=== PATIENT | female | born 1995 | race Caucasian/White ===

== ENCOUNTER → 2017-09-11 16:11 | Observation (INO) ==
[2017-09-11 13:27] LABS: Bilirubin,Urine Negative (Negative); Blood,Urine Negative (Negative); Clarity,Urine Cloudy (Clear); Color,Urine Yellow (Yellow); Glucose,Urine (UA) Normal (Normal); Ketones,Urine 80 mg/dL (Negative); Leukocyte Esterase,Urine Moderate (Negative); Nitrite,Urine Negative (Negative); PH,Urine 6.5 pH Units (5.0-8.0); Protein,Urine 30 mg/dL (Neg-Trace); Specific Gravity,Urine 1.023 (1.010-1.025); Urobilinogen,Urine Normal (Normal)
[2017-09-11 13:30] LABS: Bacteria,Urine Few per hpf (None-Few); Hyaline Casts,Urine Few per lpf (None-Few); Squamous Epithelial Cell,Urine Many per lpf (None-Few); WBC,Urine 15-30 per hpf (0-3)
[2017-09-11 13:36] LABS: Amphetamine Screen,Urine Negative ng/mL (Cutoff=1000); Barbiturate Screen,Urine Negative ng/mL (Cutoff=200); Benzodiazepines Screen,Urine Negative ng/mL (Cutoff=200); Cannabinoid Screen,Urine Negative ng/mL (Cutoff = 50); Cocaine Screen,Urine Negative ng/mL (Cutoff= 300); Opiate Screen,Urine Negative ng/mL (Cutoff=300); Phencyclidine Screen,Urine Negative ng/mL (Cutoff=25)
--- NOTE | 2017-09-11 15:10 | OB/GYN Progress Note ---
Date of Encounter: 09/11/17 Time of Encounter: 15:04 - Assessment and Plan (1) Nausea and vomiting during Current Visit: Yes Status: Acute LR bolus, Zofran IV given. Discussed with patient the stomach flu usually takes about 24-36 hours to run its course. Recommended half diluted Gatorade until tolerating and then full-strength Gatorade with starting Chavez diet tomorrow. Discharged home with labor and went to return to triage precautions. Discussed with patient if unable to keep any food or liquids down after 24 hours to please return to triage for further evaluation (2) 34 weeks gestation of Current Visit: Yes Status: Acute Follow-up with Dr. Bennett as scheduled Subjective - Subjective Interval history: 34+ weeks gestation presents to triage with nausea and vomiting and abdominal pain since 5 AM this morning. She states she has been having frequent emesis this morning since 5:00 in the morning. Reports good movement, denies vaginal bleeding, and contractions or leaking of fluid. Patient with 2 emesis here in triage. Antepartum ROS: movement normal, no loss of fluid, no vaginal bleeding, no contractions Objective - Vital Signs Vital Signs: Intake and Output 09/10/17 09/11/17 09/11/17 23:59 07:59 15:59 Other: Weight 78.6 kg Patient Weight 09/11/17 23:59 Weight 78.6 kg - Exam FHR: auscultation normal Abdomen: Present: normal appearance, soft, gravid Cervical dilation: 2/75/-2 - Labs Labs: Abnormal lab results Urine Clarity Cloudy (Clear) A 09/11/17 13:12 Urine Protein 30 mg/dL (Neg-Trace) H 09/11/17 13:12 Urine Ketones 80 mg/dL (Negative) H 09/11/17 13:12 Ur Leukocyte Esterase Moderate (Negative) H 09/11/17 13:12 Urine Microscopic RBC 5-15 per hpf (0-3) H 09/11/17 13:12 Urine Microscopic WBC 15-30 per hpf (0-3) H 09/11/17 13:12 Ur Squamous Epith Cells Many per lpf (None-Few) H 09/11/17 13:12
[~2017-09-11 16:11] MED LIST: Ondansetron 4 MG/2 ML VIAL IVP ONE; Ringers Solution, Lactated 1,000 ML IVC ONE; Ringers Solution, Lactated 500 ML ONE
== END | disposition home or self-care (01) ==
LOC: 1NENULAB
PROVIDERS: ADMIT Advanced Practice Midwife; ATTEND Advanced Practice Midwife